=== PATIENT | male | born 1980 | race Two or more races ===

== ENCOUNTER 2022-08-26 13:02 | Emergency (ER) | payer SELFPAY ==
[~2022-08-26] VITALS: Ht 167.6 cm; Wt 81.0 kg
[2022-08-26 13:14] VITALS: BP 114/73
[2022-08-26] MEDS ORDERED: IBUPROFEN 600MG TABLET PO STA (14:49)
[2022-08-26 15:37] LABS: CLARITY URINE CLEAR (CLEAR); COLOR URINE YELLOW (YELLOW); KETONES URINE TRACE (NEGATIVE); LEUKOCYTE ESTERASE URINE NEGATIVE (NEGATIVE); NITRITE URINE NEGATIVE (NEGATIVE); OCCULT BLOOD URINE NEGATIVE (NEGATIVE); PROTEIN URINE NEGATIVE (NEGATIVE); SPECIFIC GRAVITY URINE 1.024 (1.005-1.030); UROBILINOGEN URINE 0.2 E.U./dL (0.2-1.0)
== END 2022-08-26 18:24 | disposition left against medical advice (07) ==
LOC: ER 13:25
DX: R10.9 Unspecified abdominal pain (principal)
CPT/HCPCS: 81003; 99283

== ENCOUNTER 2022-09-26 15:41 | Emergency (ER) | payer SELFPAY ==
[~2022-09-26] VITALS: Ht 165.1 cm; Wt 66.0 kg
[2022-09-26] MEDS ORDERED: IBUPROFEN 800MG TABLET PO ONE (18:45)
[2022-09-26] MEDS ORDERED: CEFTRIAXONE SODIUM 500 MG/VIAL IM ONE (18:45)
[2022-09-26] MEDS ORDERED: AZITHROMYCIN 500 MG TABLET PO ONE ×2 (18:45)
[2022-09-26] MEDS ORDERED: DOXY150T5 MT (19:10)
[2022-09-26] MEDS ORDERED: IBUP-2029 MT (19:11)
[2022-09-26 19:30] VITALS: BP 116/72
== END 2022-09-26 20:18 | disposition home or self-care (01) ==
LOC: ER 15:41
DX: R30.0 Dysuria (principal)
CPT/HCPCS: 96372; 99283; J0696; Z7610

== ENCOUNTER 2023-04-08 14:30 | Emergency (ER) | payer MEDICAID ==
[~2023-04-08] VITALS: Ht 177.8 cm; Wt 65.0 kg
[~2023-04-08 14:30] MED LIST: DOXY150T5 MT; IBUP-2029 MT
[2023-04-08 14:41] VITALS: O2SAT 100
[2023-04-08] MEDS ORDERED: CEPHALEXIN 250MG CAPSULE PO ONE (17:00)
[2023-04-08] MEDS ORDERED: SULFAMETHOXAZOLE/TRIMETHOPRIM 800/160MG TABLET PO ONE (17:00)
[2023-04-08] MEDS ORDERED: TETANUS, DIPHTHERIA, PERTUSSIS VAC/PF 0.5ML (>10YR OLD) IM ONE ×2 (17:00→19:00)
[2023-04-08] MEDS ORDERED: IBUP-2029 MT (17:46)
[2023-04-08] MEDS ORDERED: CEPH500C2 MT (17:46)
[2023-04-08] MEDS ORDERED: SULF1TAB48 MT (17:46)
[2023-04-08] MEDS ORDERED: SULFAMETHOXAZOLE/TRIMETHOPRIM 800/160MG TABLET PO NR (18:45)
[2023-04-08] MEDS ORDERED: CEPHALEXIN 250MG CAPSULE PO NR (18:45)
[2023-04-08 19:58] VITALS: BP 132/78; PULSE 68; RESP 16; TEMP 97.5
== END 2023-04-08 20:03 | disposition home or self-care (01) ==
LOC: ER 14:48
DX: L02.415 Cutaneous abscess of right lower limb (principal)
CPT/HCPCS: 90471; 90715; 99283

== ENCOUNTER 2023-08-21 14:27 | Emergency (ER) | payer BC, MEDICAID ==
[~2023-08-21] VITALS: Ht 160 cm; Wt 71.0 kg
[~2023-08-21 14:27] MED LIST changes: +CEPH500C2 MT; +SULF1TAB48 MT
[2023-08-21 14:36] VITALS: BP 128/87; PULSE 97; RESP 18; TEMP 99.1; O2SAT 93
[2023-08-21] MEDS ORDERED: LIDOCAINE HCL/EPINEPHRINE 1%-EPI 1:100,000 20 ML VIAL INFIL ONE (14:45)
[2023-08-21] MEDS ORDERED: BACITRACIN ZINC OINT UDPKT TOP ONE (14:45)
== END 2023-08-22 00:16 | disposition home or self-care (01) ==
LOC: ER 14:27
DX: S01.81XA Laceration without foreign body of other part of head, initial encounter (principal); Z79.899 Other long term (current) drug therapy; Y08.89XA Assault by other specified means, initial encounter; Y93.89 Activity, other specified; Y92.89 Other specified places as the place of occurrence of the external cause; Y99.8 Other external cause status
CPT/HCPCS: 99284; 70450; 70486; 12011; J3490

== ENCOUNTER 2024-04-10 20:04 | Emergency (ER) | payer BC, MEDICAID ==
[~2024-04-10] VITALS: Ht 165.1 cm; Wt 73.0 kg
[~2024-04-10 20:04] MED LIST changes: -DOXY150T5 MT; +DOXY150T8 MT
[2024-04-10 20:11] VITALS: O2SAT 100
[2024-04-10] MEDS: KETOROLAC 30MG/ML VIAL IM ONE (23:57)
[2024-04-10] MEDS: BACITRACIN ZINC OINT UDPKT TOP ONE (23:57)
[2024-04-10] MEDS: LIDOCAINE HCL/PF 1% 10 MG/ML 5ML VIAL INFIL ONE (23:57)
[2024-04-10] MEDS: HYDROCODONE/ACETAMINOPHEN 5/325MG TABLET PO ONE (23:57)
[2024-04-11] MEDS ORDERED: SULF1TAB48 MT (02:22)
[2024-04-11] MEDS ORDERED: CEPH500T MT (02:22)
[2024-04-11] MEDS: SULFAMETHOXAZOLE/TRIMETHOPRIM 800/160MG TABLET PO ONE (02:30)
[2024-04-11] MEDS: CEPHALEXIN 250MG CAPSULE PO ONE (02:30)
[2024-04-11 03:15] VITALS: BP 133/65; PULSE 71; RESP 16; TEMP 36.89184; O2SAT 100
== END 2024-04-11 03:21 | disposition home or self-care (01) ==
LOC: ER 20:04
DX: L02.31 Cutaneous abscess of buttock (principal); F19.90 Other psychoactive substance use, unspecified, uncomplicated; Z79.899 Other long term (current) drug therapy
CPT/HCPCS: 99283; 10060; 96372; J1885; J3490

== ENCOUNTER 2024-07-02 03:54 | Emergency (ER) | payer MEDICAID ==
[~2024-07-02] VITALS: Ht 165.1 cm; Wt 72.0 kg
[~2024-07-02 03:54] MED LIST changes: +CEPH500T MT
[2024-07-02 03:58] VITALS: O2SAT 99
[2024-07-02] MEDS: ACETAMINOPHEN 325MG TABLET PO ONE (05:07)
[2024-07-02] MEDS: TETANUS, DIPHTHERIA, PERTUSSIS VAC/PF 0.5ML (>10YR OLD) IM ONE (05:08)
[2024-07-02 06:20] LABS: HEMATOCRIT. 41.6 % (42.0-52.0); MEAN CORPUSCULAR HGB CONC 33.7 g/dL (31.0-37.0); PLATELET 344 x1000/uL (130-400); RED BLOOD CELL COUNT 4.38 mill/uL (4.7-6.1); RED CELL DISTRIBUTION WIDTH 13.6 % (11.6-14.6); WHITE BLOOD COUNT 12.6 x1000/uL (4.5-11.0)
[2024-07-02 06:23] LABS: CHLORIDE 109 mEq/L (98-107); POTASSIUM 3.8 mEq/L (3.5-5.1); SODIUM 142 mEq/L (136-145)
[2024-07-02 06:24] LABS: CALCIUM 8.9 mg/dL (8.7-10.4); CARBON DIOXIDE 27 mEq/L (21-32)
[2024-07-02 06:29] LABS: CREATININE 0.9 mg/dL (0.6-1.3); DIFFERENTIAL COMMENT 1; GLUCOSE 125 mg/dL (70-105); UREA NITROGEN BLOOD 17 mg/dL (9-23)
[2024-07-02 06:41] LABS: ETHANOL BLOOD < 10 mg/dL (<10)
[2024-07-02 07:42] LABS: ATYPICAL LYMPHOCYTES 1; PLATELET ESTIMATE NORMAL
[2024-07-02] MEDS: LIDOCAINE HCL/EPINEPHRINE 1%-EPI 1:100,000 10ML VIAL INFIL ONE (08:16)
[2024-07-02] MEDS: BACITRACIN ZINC OINT UDPKT TOP ONE (08:16)
[2024-07-02] MEDS ORDERED: AMOX1TAB16 MT (08:52)
[2024-07-02] MEDS ORDERED: AZIT250T12 MT (08:52)
[2024-07-02] MEDS: AMOXICILLIN/POTASSIUM CLAVULANATE 875/125MG TAB PO ONE (09:39)
[2024-07-02] MEDS: AZITHROMYCIN 500 MG TABLET PO ONE (09:39)
[2024-07-02 09:42] VITALS: BP 121/85; PULSE 71; RESP 16; TEMP 36.83628; O2SAT 99
== END 2024-07-02 11:45 | disposition home or self-care (01) ==
LOC: ER 03:54
DX: J18.9 Pneumonia, unspecified organism (principal); S01.81XA Laceration without foreign body of other part of head, initial encounter; F19.10 Other psychoactive substance abuse, uncomplicated; Z79.899 Other long term (current) drug therapy; X58.XXXA Exposure to other specified factors, initial encounter; Y93.89 Activity, other specified; Y92.89 Other specified places as the place of occurrence of the external cause; Y99.8 Other external cause status
CPT/HCPCS: 80048; 80320; 85025; 36415; 71045; 73060; 73090; 70450; 90715; 12011; 90471; 99285; Z7610; G0480